=== PATIENT | female | born 1970 | race Caucasian/White ===

== ENCOUNTER 2024-12-31 16:59 | Emergency (ER) | payer OTHER, SELFPAY ==
[2024-12-31 17:13] VITALS: BP 127/98; PULSE 87; RESP 16; TEMP 36.3; O2SAT 98
--- NOTE | 2024-12-31 17:28 | ED_ITS ---
HPI - Female Genitourinary General Chief complaint: Urogenital-Female Stated complaint: FLANK PAIN Time Seen by Provider: 12/31/24 17:01 Source: patient Mode of arrival: ambulatory Limitations: no limitations History of Present Illness HPI Narrative: Patient presents to clinic with complaints of right CVA tenderness, nausea, and vomiting x 2 days. She has not been taking anything over the counter for her symptoms. She states that she had a UTI a month ago and was treated with Cipro. She felt like at that time that her symptoms went away after treatment. She does also state that she has also had kidney stones in the past. Denies any fever, chills, burning with urination, itching. Related Data Home Medications ?Medication ?Instructions ?Recorded ?Confirmed ?Last Taken ?Type tirzepatide (weight loss) 12/31/24 Unknown History Allergies Allergy/AdvReac Type Severity Reaction Status Date / Time No Known Allergies Allergy Verified 12/31/24 17:12 Review of Systems Review of Systems: CONSTITUTIONAL: Denies body aches, fever, chills, or sweats. CARDIOVASCULAR: Denies chest pain, palpitations, or edema. RESPIRATORY: Denies cough or dyspnea. GASTROINTESTINAL: Denies abdominal pain, nausea, vomiting, or diarrhea. GENITOURINARY: Denies dysuria, frequency, urgency, hematuria, discharge. Reports R flank pain. SKIN: Denies rash, itching, or wounds. MUSCULOSKELETAL: Denies back pain or myalgia. All systems reviewed & are unremarkable except as noted in HPI and below PMFSH Comments At time of signature, I have reviewed and agree with nursing past medical, surgical, social and family history unless otherwise noted. Please see nursing chart for further information. There is no relevant family history pertinent to the presenting complaint. Exam Narrative: GENERAL: Well-appearing and in no acute distress. ENT: Mucous membranes pink and moist. NECK: Normal AROM. ?Supple. ? CHEST: ?No respiratory distress. Clear to auscultation. HEART: Regular rate and rhythm. ABDOMEN: Soft, nontender, nondistended, normal active bowel sounds. No CVA tenderness. SKIN: Warm, dry, no rash. NEURO: No focal deficits. Alert and oriented x3. Gait steady. PSYCH: ?Normal affect. ? Course Course Level of Care: Express Care Visit Vital Signs Vital signs: Vital Signs Temperature 97.3 F L 12/31/24 17:13 Pulse Rate 87 12/31/24 17:13 Respiratory Rate 16 12/31/24 17:13 Blood Pressure 127/98 H 12/31/24 17:13 Pulse Oximetry 98 12/31/24 17:13 Temperature 97.3 F L 12/31/24 17:13 Pulse Rate 87 12/31/24 17:13 Respiratory Rate 16 12/31/24 17:13 Blood Pressure 127/98 H 12/31/24 17:13 Pulse Oximetry 98 12/31/24 17:13 Reviewed. MDM - Female Genitourinary MDM Narrative Medical decision making narrative: Discussed physical exam findings. Antibiotic for UTI. Shared decision making with patient regarding kidney stones. Patient has had kidney stones in the past and does not feel like she has one. She is adamant about only treating the UTI at this time. Discussed in length that if symptoms persist, she needs to go to ER. Pt is appropriate for outpatient treatment and follow up. Differential Diagnosis Differential diagnosis: Likely urinary tract infection and other (kidney stone) Critical Care Time Critical Care Time Critical Care Time: No Discharge Plan Discharge Clinical Impression: Urinary tract infection Patient Disposition: Home Condition: Stable Instructions: Antibiotic Form, Urinary Tract Infection in Women (ED) Additional Instructions: Your urine shows infection today. Take Bactrim as prescribed until gone. Your urine will be sent of for a culture to identify what type of bacteria is causing your infection. If the culture shows that your medication will not get rid of your infection, you will be notified and a new antibiotic will be called in for you. If the culture does not identify any bacteria, you may receive a phone call instructing you to stop the Bactrim. If there is no bacteria identified, you will need to follow up with your PCP for further evaluation and treatment if symptoms persist. Patient Language: Slovenian Prescriptions: New sulfamethoxazole-trimethoprim [Bactrim DS] 800-160 mg tablet 1 tablet PO Q12H 3 Days Qty: 6 0RF No Action tirzepatide (weight loss) Follow-up/Referrals: PHYSICIAN,.NET DEVELOPER [Primary Care Provider] - Time of Disposition: 17:30
[2025-01-01 11:57] LABS: EDUAAPPEAR Cloudy; EDUABILI Negative (Negative); EDUABLOOD Trace (Negative); EDUACOLOR1 Yellow; EDUAGLUCOSE Negative (Negative); EDUAKETONE Trace (Negative); EDUALEUKO 1+ (Negative); EDUANITRATE Negative (Negative); EDUAPROTEIN Negative (Negative); EDUAUROBILI 0.2
== END 2024-12-31 17:33 | disposition home or self-care (01) ==
DX: N39.0 Urinary tract infection, site not specified (principal); Z87.442 Personal history of urinary calculi
CPT/HCPCS: 81003; 87086; 99213; G0463

== ENCOUNTER 2025-01-01 11:14 | Emergency (ER) | payer OTHER, SELFPAY ==
--- NOTE | ~2025-01-01 | CT_ITS ---
EXAMINATION: CT abdomen pelvis wo con DATE: 01/01/2025 14:14 INDICATION: Right flank pain and kidney stones. TECHNIQUE: Computed tomography (CT) of the abdomen and pelvis was performed without intravenous contr ast. Automated exposure control and iterative reconstruction technique were employed. The dose-length product was 336.21 mGy-cm. COMPARISON: None FINDINGS: Lung bases are clear. Heart size is normal. No pericardial or pleural effusion. Cholecystectomy clips the gallbladder fossa. Liver, spleen, pancreas and bilateral adrenal glands are normal. Kidneys and ureters are normal with no urolithiasis, hydroureteronephrosis or perinephric/ureteral stranding. Florentin wels including the appendix are normal. Bladder, anteverted uterus and bilateral adnexa are unremarka ble. No free intraperitoneal gas or fluid. No pathologically enlarged abdominal or pelvic lymphadenop athy. Chronic appearing minimal to mild likely physiologic anterior wedging at T11-L1. Mild thoracic and lumbar spondylosis. IMPRESSION: 1. No urolithiasis or acute intra-abdominal/pelvic process. Reviewed, dictated and finalized at location A.
[2025-01-01 11:16] VITALS: BP 139/83; PULSE 90; RESP 16; TEMP 36.4; O2SAT 100
--- NOTE | 2025-01-01 12:53 | ED.ABDPAIN ---
HPI - Abdominal Pain General Chief Complaint: Urogenital-Female <Ysabel Cevallos PA-C - Last Filed: 01/01/25 16:20> Stated Complaint: flank pain <Ysabel Cevallos PA-C - Last Filed: 01/01/25 16:20> Time Seen by Provider: 01/01/25 12:53 <Ysabel Cevallos PA-C - Last Filed: 01/01/25 16:20> Focused HPI: This is a 54 year old female that presents to the ER for right flank pain. Ongoing since yesterday. She went to urgent care yesterday and reports she had blood in her urine. She was prescribed Bactrim. Presents today for continued pain. Denies fevers, vomiting. GENERAL: Well-appearing, well-nourished, and in no acute distress. HEAD: Normocephalic, atraumatic. CHEST: Clear to auscultation. ?No respiratory distress. HEART: Regular rate and rhythm.? NEURO: ?Alert and oriented x3. Patient screened in triage and initial orders placed.? ?Additional care and disposition to be based upon?diagnostic testing and treatment. <Ysabel Cevallos PA-C - Last Filed: 01/01/25 16:20> History of Present Illness HPI narrative: 54-year-old female presenting with flank pain. Started yesterday while she was at work. Feels similarly to prior kidney stones. She went to urgent care yesterday and they saw blood in her urine so they started her on Bactrim. She has been taking this as prescribed. Pain continued today so she wanted to get checked out. She did have some dysuria earlier. Reports subjective fevers. No nausea or vomiting. No abdominal pain. No further complaints. <Yana Gonzalez MD - Last Filed: 01/01/25 15:14> Related Data Home Medications: Home Medications ?Medication ?Instructions ?Recorded ?Confirmed ?Last Taken ?Type tirzepatide (weight loss) 12/31/24 Unknown History <Ysabel Cevallos PA-C - Last Filed: 01/01/25 16:20> Allergies/Adverse Reactions: Allergies Allergy/AdvReac Type Severity Reaction Status Date / Time No Known Allergies Allergy Verified 01/01/25 11:14 <Ysabel Cevallos PA-C - Last Filed: 01/01/25 16:20> Review of Systems Review of Systems: All systems reviewed & are unremarkable except as noted in HPI and below <Yana Gonzalez MD - Last Filed: 01/01/25 15:14> Exam Narrative: GENERAL: Well-appearing, in no acute distress, pleasant and cooperative HEAD: Normocephalic, atraumatic. EYES: PERRLA and EOMI. ENT: Mucous membranes moist. NECK: Supple. CHEST: Clear to auscultation. No respiratory distress. HEART: Regular rate and rhythm ABDOMEN: Soft, nontender, nondistended; no CVA tenderness EXTREMITIES: Normal range of motion SKIN: Warm, dry, no rash. NEURO: Alert and oriented x3. PSYCH: Normal mood and affect. <Yana Gonzalez MD - Last Filed: 01/01/25 15:14> Course Vital Signs Vital signs: Vital Signs Temperature 97.6 F 01/01/25 11:16 Pulse Rate 90 01/01/25 11:16 Respiratory Rate 16 01/01/25 11:16 Blood Pressure 139/83 01/01/25 11:16 Pulse Oximetry 100 01/01/25 11:16 Oxygen Delivery Room Air 01/01/25 11:16 Temperature 97.6 F 01/01/25 11:16 Pulse Rate 67 01/01/25 15:24 Respiratory Rate 20 01/01/25 15:24 Blood Pressure 128/84 01/01/25 15:24 Pulse Oximetry 98 01/01/25 15:24 Oxygen Delivery Room Air 01/01/25 11:16 <Ysabel Cevallos PA-C - Last Filed: 01/01/25 16:20> Vital Signs Temperature 97.6 F 01/01/25 11:16 Pulse Rate 90 01/01/25 11:16 Respiratory Rate 16 01/01/25 11:16 Blood Pressure 139/83 01/01/25 11:16 Pulse Oximetry 100 01/01/25 11:16 Oxygen Delivery Room Air 01/01/25 11:16 Temperature 97.6 F 01/01/25 11:16 Pulse Rate 67 01/01/25 15:24 Respiratory Rate 20 01/01/25 15:24 Blood Pressure 128/84 01/01/25 15:24 Pulse Oximetry 98 01/01/25 15:24 Oxygen Delivery Room Air 01/01/25 11:16 <Yana Gonzalez MD - Last Filed: 01/01/25 15:14> MDM - Abdominal Pain MDM Narrative Medical decision making narrative: 54-year-old female presenting with right flank pain. UA with 3+ leuk esterase, 51-100 wbc's, many squams. Blood work is unremarkable. CT abdomen pelvis with no acute abnormalities. Discussed the reassuring workup with the patient. She is safe for outpatient management, she will complete the Bactrim as prescribed and follow-up with her PCP. Appropriate return precautions given. Discharged in stable condition. <Yana Gonzalez MD - Last Filed: 01/01/25 15:14> Differential Diagnosis Differential diagnosis: Likely abdominal pain, acute appendicitis, calculus of kidney, constipation and diverticulitis <Yana Gonzalez MD - Last Filed: 01/01/25 15:14> Medical Records Attestation: I reviewed the patient's medical records. <Yana Gonzalez MD - Last Filed: 01/01/25 15:14> Lab Data Attestation: I reviewed the patient's lab results. <Yana Gonzalez MD - Last Filed: 01/01/25 15:14> Result diagrams: 01/01/25 13:00 01/01/25 13:00 <Ysabel Cevallos PA-C - Last Filed: 01/01/25 16:20> Labs: Lab Results 01/01/25 01/01/25 Range/Units 13:00 13:17 WBC 9.2 (4.5-10.0) K/mm3 RBC 5.33 (4.2-5.4) M/mm3 Hgb 14.6 (12.0-15.0) g/dL Hct 44.2 (37.0-47.0) % MCV 82.9 (80-100) fl MCH 27.4 (26-34) pg MCHC 33.0 (32-36) g/dl RDW 13.5 (11.5-14.5) % Plt Count 239 (150-375) k/mm3 MPV 11.0 H (7.4-10.4) fl Immature Gran % (Auto) 0.3 (0-0.5) % Neut % (Auto) 68.1 (45.5-73.1) % Lymph % (Auto) 16.4 L (18.3-44.2) % [place] % (Auto) 14.0 H (2.6-8.5) % Eos % (Auto) 0.8 (0-4.4) % Baso % (Auto) 0.4 (0.2-1.2) % Lymph # (Auto) 1.51 (0.9-3.2) K/mm3 [place] # (Auto) 1.3 H (0.1-0.6) K/mm3 Eos # (Auto) 0.1 (0-0.3) K/mm3 Baso # (Auto) 0.0 (0.0-0.1) K/mm3 Abs Immat Gran (auto) 0.03 (0.00-0.031) K/mm3 Absolute Neuts (auto) 6.3 (1.3-6.7) K/mm3 Absolute Nucleated RBC 0.000 (0.0-0.012) K/mm3 Nucleated RBC % 0.0 (0.0-0.2) % Sodium 135 L (137-145) mmol/L Potassium 4.0 (3.4-5.0) mmol/L Chloride 100 (98-107) mmol/L Carbon Dioxide 29 (22-30) mmol/L Anion Gap 6 (4-12) mmol/L BUN 6 L (7-17) mg/dL Creatinine 0.78 (0.7-1.0) mg/dL Estim Creat Clear Calc 88 ml/min Estimated GFR > 60 (59 - ) Glucose 92 (65-110) mg/dL Calcium 9.1 (8.4-10.2) mg/dL Total Bilirubin 1.3 (0.2-1.3) mg/dL AST 28 (14-36) U/L ALT 37 H (6-35) U/L Alkaline Phosphatase 89 (38-126) U/L Total Protein 7.0 (6.3-8.2) g/dL Albumin 4.0 (3.5-5.1) g/dL Lipase 122 (23-300) U/L Urine Color Yellow (Yellow) Urine Appearance Cloudy H (Clear) Urine pH 6.0 (5.0-9.0) Ur Specific [place] 1.013 (1.001-1.035) Urine Protein Negative (Negative) mg/dL Urine Glucose (UA) Negative (Negative) mg/dL Urine Ketones Negative (Negative) mg/dL Ur Blood (Man) Trace (Negative) Urine Nitrate Negative (Negative) Urine Bilirubin Negative (Negative) Urine Urobilinogen 0.2 (<2.0) mg/dL Leukocyte Esterase Rfl 3+ H (Negative) IBRAHIMA/UL Urine RBC 3-5 H (0-2) /hpf Urine WBC 51-100 H (0-3) /hpf Ur Squamous Epith Cells Many H (Few) /hpf Urine Bacteria 1+ H /hpf Urine Casts 0-2 POC Urine HCG, Qual Negative (Negative) <Ysabel Cevallos PA-C - Last Filed: 01/01/25 16:20> Lab Results 01/01/25 01/01/25 Range/Units 13:00 13:17 WBC 9.2 (4.5-10.0) K/mm3 RBC 5.33 (4.2-5.4) M/mm3 Hgb 14.6 (12.0-15.0) g/dL Hct 44.2 (37.0-47.0) % MCV 82.9 (80-100) fl MCH 27.4 (26-34) pg MCHC 33.0 (32-36) g/dl RDW 13.5 (11.5-14.5) % Plt Count 239 (150-375) k/mm3 MPV 11.0 H (7.4-10.4) fl Immature Gran % (Auto) 0.3 (0-0.5) % Neut % (Auto) 68.1 (45.5-73.1) % Lymph % (Auto) 16.4 L (18.3-44.2) % [place] % (Auto) 14.0 H (2.6-8.5) % Eos % (Auto) 0.8 (0-4.4) % Baso % (Auto) 0.4 (0.2-1.2) % Lymph # (Auto) 1.51 (0.9-3.2) K/mm3 [place] # (Auto) 1.3 H (0.1-0.6) K/mm3 Eos # (Auto) 0.1 (0-0.3) K/mm3 Baso # (Auto) 0.0 (0.0-0.1) K/mm3 Abs Immat Gran (auto) 0.03 (0.00-0.031) K/mm3 Absolute Neuts (auto) 6.3 (1.3-6.7) K/mm3 Absolute Nucleated RBC 0.000 (0.0-0.012) K/mm3 Nucleated RBC % 0.0 (0.0-0.2) % Sodium 135 L (137-145) mmol/L Potassium 4.0 (3.4-5.0) mmol/L Chloride 100 (98-107) mmol/L Carbon Dioxide 29 (22-30) mmol/L Anion Gap 6 (4-12) mmol/L BUN 6 L (7-17) mg/dL Creatinine 0.78 (0.7-1.0) mg/dL Estim Creat Clear Calc 88 ml/min Estimated GFR > 60 (59 - ) Glucose 92 (65-110) mg/dL Calcium 9.1 (8.4-10.2) mg/dL Total Bilirubin 1.3 (0.2-1.3) mg/dL AST 28 (14-36) U/L ALT 37 H (6-35) U/L Alkaline Phosphatase 89 (38-126) U/L Total Protein 7.0 (6.3-8.2) g/dL Albumin 4.0 (3.5-5.1) g/dL Lipase 122 (23-300) U/L Urine Color Yellow (Yellow) Urine Appearance Cloudy H (Clear) Urine pH 6.0 (5.0-9.0) Ur Specific [place] 1.013 (1.001-1.035) Urine Protein Negative (Negative) mg/dL Urine Glucose (UA) Negative (Negative) mg/dL Urine Ketones Negative (Negative) mg/dL Ur Blood (Man) Trace (Negative) Urine Nitrate Negative (Negative) Urine Bilirubin Negative (Negative) Urine Urobilinogen 0.2 (<2.0) mg/dL Leukocyte Esterase Rfl 3+ H (Negative) IBRAHIMA/UL Urine RBC 3-5 H (0-2) /hpf Urine WBC 51-100 H (0-3) /hpf Ur Squamous Epith Cells Many H (Few) /hpf Urine Bacteria 1+ H /hpf Urine Casts 0-2 POC Urine HCG, Qual Negative (Negative) <Yana Gonzalez MD - Last Filed: 01/01/25 15:14> Imaging Data Radiologist's impression: ITS Impressions Abdomen/Pelvis CT 01/01/25 14:15 IMPRESSION: 1. No urolithiasis or acute intra-abdominal/pelvic process. <Ysabel Cevallos PA-C - Last Filed: 01/01/25 16:20> ITS Impressions Abdomen/Pelvis CT 01/01/25 14:15 IMPRESSION: 1. No urolithiasis or acute intra-abdominal/pelvic process. <Yana Gonzalez MD - Last Filed: 01/01/25 15:14> Critical Care Time Critical Care Time Critical Care Time: No <Yana Gonzalez MD - Last Filed: 01/01/25 15:14> Discharge Plan Discharge Clinical Impression: Urinary tract infection Qualifiers: Urinary tract infection type: acute cystitis Hematuria presence: with hematuria Qualified Code(s): N30.01 - Acute cystitis with hematuria <Ysabel Cevallos PA-C - Last Filed: 01/01/25 16:20> Patient Disposition: Home <Ysabel Cevallos PA-C - Last Filed: 01/01/25 16:20> Condition: Stable <Ysabel Cevallos PA-C - Last Filed: 01/01/25 16:20> Instructions: Antibiotic Form, Urinary Tract Infection in Women (ED) <Ysabel Cevallos PA-C - Last Filed: 01/01/25 16:20> Additional Instructions: The CT scan today shows no kidney stones. Please complete the antibiotics as prescribed for your bladder infection. Follow-up closely with your PCP. If your symptoms worsen or other concerning symptoms arise, please return to the ER. <Ysabel Cevallos PA-C - Last Filed: 01/01/25 16:20> Patient Language: Japanese <Ysabel Cevallos PA-C - Last Filed: 01/01/25 16:20> Prescriptions: No Action tirzepatide (weight loss) sulfamethoxazole-trimethoprim [Bactrim DS] 800-160 mg tablet 1 tablet PO Q12H 3 Days Qty: 6 0RF <Ysabel Cevallos PA-C - Last Filed: 01/01/25 16:20> Follow-up/Referrals: PHYSICIAN,BATTER DEPOSITOR [Primary Care Provider] - <Ysabel Cevallos PA-C - Last Filed: 01/01/25 16:20>
[2025-01-01 13:13] LABS: Basophils Percent Auto 0.4 % (0.2-1.2); Eosinophils Absolute Auto 0.1 K/mm3 (0-0.3); Eosinophils Percent Auto 0.8 % (0-4.4); Hematocrit 44.2 % (37.0-47.0); Hemoglobin 14.6 g/dL (12.0-15.0); Immature Granulocyte Absolute 0.03 K/mm3 (0.00-0.031); Immature Granulocyte Percent A 0.3 % (0-0.5); Lymphocytes Absolute Auto 1.51 K/mm3 (0.9-3.2); Lymphocytes Percent Auto 16.4 % (18.3-44.2); Mean Corpuscular Hemoglobin 27.4 pg (26-34); Mean Corpuscular Volume 82.9 fl (80-100); Monocytes Absolute Auto 1.3 K/mm3 (0.1-0.6); Neutrophils Absolute Auto 6.3 K/mm3 (1.3-6.7); Neutrophils Percent Auto 68.1 % (45.5-73.1); Platelet Count Result 239 k/mm3 (150-375); Red Blood Count 5.33 M/mm3 (4.2-5.4); Red Cell Distribution Width 13.5 % (11.5-14.5); White Blood Count 9.2 K/mm3 (4.5-10.0)
[2025-01-01 13:18] LABS: Add Urine Microscopic? YES; Appearance Urine Cloudy (Clear); Bacteria Urine 1+ /hpf; Bilirubin Urine Negative (Negative); Blood Urine Trace (Negative); Color Urine Yellow (Yellow); Glucose Urine UA Negative (Negative); Ketones Urine Negative (Negative); Leukocyte Esterase Ur 3+ LEU/UL (Negative); Nitrate Urine Negative (Negative); Non Pathogenic Casts 0-2; Protein Urine Negative (Negative); Specific Grav Ur 1.013 (1.001-1.035); Squamous Epithelial Cell Urine Many /hpf (Few); Urobilinogen Urine 0.2 mg/dL (<2.0); WBC Urine 51-100 /hpf (0-3)
[2025-01-01 13:18] LABS: BEDSIDEPREGUCG Negative (Negative)
[2025-01-01 13:26] LABS: Alanine Aminotransferase 37 U/L (6-35); Alkaline Phosphatase 89 U/L (38-126); Anion Gap 6 mmol/L (4-12); Aspartate Amino Transferase 28 U/L (14-36); Bilirubin,Total 1.3 mg/dL (0.2-1.3); Blood Urea Nitrogen 6 mg/dL (7-17); Calcium 9.1 mg/dL (8.4-10.2); Carbon Dioxide 29 mmol/L (22-30); Chloride 100 mmol/L (98-107); Estimated CRCL calculation 88 ml/min; Estimated Glomerular Filt Rate > 60; Glucose 92 mg/dL (65-110); Lipase 122 U/L (23-300); Sodium 135 mmol/L (137-145)
[2025-01-01 15:24] VITALS: BP 128/84; PULSE 67; RESP 20; O2SAT 98
== END 2025-01-01 15:25 | disposition home or self-care (01) ==
PROVIDERS: Physician Assistant; Emergency Provider Emergency Medicine
DX: N30.01 Acute cystitis with hematuria (principal)
CPT/HCPCS: 36415; 74176; 80053; 81001; 81025; 83690; 85025; 99284

== ENCOUNTER 2025-02-21 14:11 | Outpatient (CLI) | payer OTHER, SELFPAY ==
--- NOTE | ~2025-02-21 | MM_ITS ---
EXAMINATION: MM screening emerita BI w lesly HISTORY: Screening mammogram, family history of breast cancer in her mother. TECHNIQUE: Craniocaudal and mediolateral oblique 3-D tomosynthesis images were obtained and synthetic 2-D images were generated. CAD analysis was submitted and interpreted. COMPARISON: No prior mammogram is available for comparison at this institution. BREAST PARENCHYMAL COMPOSITION:Not Dense. The breasts are almost entirely fatty FINDINGS: No suspicious mass, calcification, or architectural distortion are identified in either cachorro ast to suggest malignancy. There has been no suspicious interval change. IMPRESSION: No mammographic evidence of malignancy. Recommend routine screening mammography in one year. BI-RADS Category 1: Negative Reviewed, dictated and finalized at location .
== END 2025-02-21 14:12 | disposition home or self-care (01) ==
LOC: ANHIMG 14:13
PROVIDERS: PCP Internal Medicine; Visit Provider Internal Medicine
DX: Z12.31 Encounter for screening mammogram for malignant neoplasm of breast (principal)
CPT/HCPCS: 77063; 77067

== ENCOUNTER 2025-06-12 01:01 | Day surgery (SDC) | payer OTHER, SELFPAY ==
[2025-06-01 10:03] VITALS: BMI 29.1
--- OUTSIDE RECORDS SUMMARY | 2025-06-12 01:04 | XMS_ITS | Data Portability ---
Author Organization [facility] Lela [facility] Address [address] [place] [address] Care Team Providers Care Director Peoplesoft Name Role Phone GERARDO TERESA Primary Care Provider MATT Lynne Stope Miner Assessment Encounter Date Assessment Date Assessment LastModified by Organization Details LastModified Time 01/29/2025 01/29/2025 Losartan 25 mg daily see me back in 6 weeks low-fat diet gynecology appointment mammogram colonoscopy CBC CMP lipid healthy lifestyle care instructions [email or web address] Not available 03/06/2025 22:42:44 04/16/2025 04/16/2025 Continue current therapy follow up 6 months Not available 04/16/2025 20:38:02 Plan of Treatment Reminders Order Date Submit Date Provider Last Modified By Organization Details Last Modified Time Details Appointments ANY 15 2025 10:00A M Gerardo Teresa MD Not available Not available Not available Lab CMP, serum or plasma 2024 025 [facility], [address], [place], [address], 02/05/2025 11:03:14 CBC w/ auto diff 2024 025 [facility], [address], [place], [address], 02/05/2025 11:03:14 lipid panel, serum 2024 025 [facility], [address], [place], [address], 01/30/2025 10:01:25 Referral gynecolog ist referral 2024 025 BROOKLYNN Garrido MD, [address] [facility] [address], [place], [address], 05/01/2025 19:38:50 Procedures colonosco py screening (PROC) 2024 025 [facility], [address], [address], [place], [address], 05/18/2025 14:24:03 Surgeries None recorded. Imaging MAMMO, screening , digital, bilateral 2024 025 [facility] (Imaging), [address], [place], [address], 02/22/2025 06:57:54 Medication Orders losartan 25 mg tablet 2024 025 [facility] #[id number], [address], [place], [address], 01/29/2025 12:33:06 Patient TargetsNo targets recorded. Patient Instructions Encounter Date Encounter Id Patient Instructions Last Modified By Organization Details Last Modified Time 01/29/2025 [id number] A healthy lifestyle: care instructions [email or web address] Not available 01/29/2025 12:33:06 04/16/2025 [id number] A healthy lifestyle: care instructions [email or web address] Not available 04/16/2025 15:55:01 Reason for Referral Vocational [employer] Referral for Gy necologic examination Referring Physician: Gerardo Teresa, Internal Medicine, Encounter Date: 01/29/2025 Results Created Date Observation Date Name Description Value Unit Range Abnormal Flag Note LastModifiedBy Organization Detail LastModifiedTime 02/23/2002/21/2025 MAMMO , scree kailee, digit al, bilat eral No observ ation record ed. [facility] [address], [place], [address], 03/07/2025 11:04:06 02/23/20 25 02/21/2025 MAMMO , ojruss kailee, digit al, bilat eral No observ ation record ed. [facility] [address], [place], [address], 03/07/2025 11:04:07 Result Notes None recorded. Problems Name Problem SNOMED Code Status Onset Date Resolution Date Notes Provider Name and Address Organization Details Recorded Time Screening for malignant neoplasm of colon Active 2024 LAISHA Ramirez, [place] - [facility] 11:40:53 Screening mammography Active 2024 LA[place], [place] [facility] 11:40:55 Gynecologic examination Active 2024 LA[place]HA aRmirez, [place] - [facility] 11:40:56 Kidney stone 47263075 Active 2024 Haylee Ramos MA null, [place] - [facility] 5 11:40:58 Essential hypertension 25704270 Active 2024 LAISHA [place] [facility] 11:41:00 Overweight 942170685 Active 2024 LA[place] [facility] 11:41:01 Overweight in adulthood with body mass index of 25 or more but less than 30 437232421 Active 2024 LAISHA [place] [facility] 11:41:03 Problem Notes None recorded. Procedures Surgical History Date Name Laterality Status Provider Name and Address Organization Details Recorded Time 01/30/20 cholecystectomy completed Cecilia Keane [place] - [facility] 01/29/2025 11:11:25 Imaging Results None recorded. Procedure Notes None recorded. Medical Equipment None Reported. Allergies No known drug allergies Medications Name Sig Start Date Stop Date Status Note LastModified by Organization Details LastModified Time amoxicillin 500 mg capsule TAKE 1 CAPSULE BY MOUTH TWICE A DAY FOR 10 DAYS 01/29 completed Not Available Not Available Not Available cetirizine 10 mg tablet TAKE 1 TABLET BY MOUTH EVERY DAY active Not Available Not Available No t Available ibuprofen 800 mg tablet TAKE 1 TABLET BY MOUTH EVERY 8 HOURS WITH FOOD NEEDED FOR PAIN *START 10/25 completed Not Available Not Available Not Available ciprofloxac in 500 mg tablet TAKE 1 TABLET BY MOUTH EVERY 12 HOURS FOR 7 DAYS 01/29 completed Not Available Not Available Not Available sulfamethox azole 800 mg-trimetho prim 160 mg tablet TAKE 1 TABLET BY MOUTH EVERY 12 HOURS FOR 3 DAYS 01/29 completed Not Available Not Available Not Available losartan 25 mg tablet TAKE 1 TABLET BY MOUTH EVERY DAY 2024 active Not Available Not Available Not Avai lable methylpredn isolone 4 mg tablets in a dose pack PLEASE SEE ATTACHED FOR DETAILED DIRECTION S 01/29 completed Not Available Not Available Not Available nitrofurant oin monohydrate /macrocryst als 100 mg capsule TAKE 1 CAPSULE BY MOUTH TWICE A DAY 01/29 completed Not Available Not Available Not Available tirzepatide (weight loss) 2.5 mg/0.5 mL subcutaneou s solution Inject 0.5 mL every week by subcutane ous route for 28 days. active Not Available Not Available No t Available Vitals Date Recorded Body height Body mass index (BMI) Body weight Heart rate Oxygen saturation Oxygen saturation in Arterial blood by Pulse oximetry Systolic And Diastolic Provider Name and Address Organization Details Last Updated DateTime 5 175.26 cm 29.7 kg/m2 81689.3 5 g 68 /min 99 % 99 % 140/98 mm[Hg] Cecilia Keane [facility] 5 11:06:59 Date Recorded Body height Body mass index (BMI) Body weight Heart rate Oxygen saturation Oxygen saturation in Arterial blood by Pulse oximetry Systolic And Diastolic Provider Name and Address Organization Details Last Updated DateTime 5 175.26 cm 29.8 kg/m2 14836.6 6 g 87 /min 96 % 96 % 102/72 mm[Hg] Cecilia Keane [facility] 5 15:35:17 Social History Question Answer Notes LastModified by Organizat ion Details LastModified Time Tobacco Smoking Status Former Smoker Cecilia Keane MA null, [facility] 01/29/2025 11:10:22 Are You Blind Or Do You Have Difficulty Seeing? No Information not available 01/29/2025 What Is Your Level Of Caffeine Consumption? Occasional Information not available 01/29/2025 In The 14 Days Before Symptom Onset, Have You Had Close Contact With A Laboratory-confir med COVID-19 While That Case Was Ill? No Information not available 01/29/2025 In The 14 Days Before Symptom Onset, Have You Had Close Contact With A Person Who Is Under Investigation For COVID-19 While That Person Was Ill? No Information not available 01/29/2025 Have You Been To An Area Known To Be High Risk For COVID-19? No Information not available 01/29/2025 Are You Deaf Or Do You Have Serious Difficulty Hearing? No Information not available 01/29/2025 Are There Any Guns Present In Your Home? No Information not available 01/29/2025 What Was The Date Of Your Most Recent Tobacco Screening? 04/16/2025 Information not available 04/16/2025 Do You Use Your Seat Belt Or Car Seat Routinely? Yes Information not available 01/29/2025 Do You Have Smoke And Carbon Monoxide Detectors In Your Home? Yes Information not available 01/29/2025 How Much Tobacco Do You Smoke? No Information not available 01/29/2025 Do You Use Sunscreen Routinely? Yes Information not available 01/29/2025 Has Tobacco Cessation Counseling Been Provided? No Information not available 01/29/2025 Sex: Female Functional Status Question Answer Note LastModified by Organizat ion Details LastModified Time Do you use any illicit or recreational drugs? No Information not available 01/29/2025 Do you or have you ever used any other forms of tobacco or nicotine? No Information not available 01/29/2025 What is your level of alcohol consumption? Occasional Information not available 01/29/2025 Are you able to care for yourself independently? Yes Information not available 01/29/2025 Mental Status None recorded. Family History Relationship Description Onset Age of this Age Resolved Age Notes LastModified by Organization Details LastModified Time Mother Family history of breast cancer gwardma Not available 2024 13:23:06 Mother Heart disease gwardma Not available 2024 13:23:14 Mother Hypertensive disorder gwardma Not available 2024 13:23:23 Medical History No medical history recorded. Gynecological HistoryNo gynecological history recorded. Obstetrics History GPAL:G 0 P 0 0 0 0 Immunizations Vaccine Type Date Status Note Provider Nam e and Address Organization Details Recorded Time COVID-19, mRNA, LNP-S, PF, 30 mcg/0.3 mL dose 12/03/2020 completed Not Available [facility] 15:02:11 COVID-19, mRNA, LNP-S, PF, 30 mcg/0.3 mL dose 12/24/2020 completed Not Available [facility] 15:02:11 Past Encounters Encounter ID Performer Location Encounter Start Date Encounter Closed Date Diagnosis/Indication Diagnosis SNOMED-CT Code Diagnosis ICD10 Code Diagnosis IMO Codes Diagnosis Note [id number] Gerardo Teresa MD [facility] [place] [address] [place] [address] 01/29/2025 10:48:26 01/29/2025 11:43:38 Overweight in adulthood with body mass index of 25 or more but less than 30 514405078 Z68.29 167609 Overweight 239054439 E66 .3 Essential hypertension 73987619 I10 119300 Kidney stone 72723117 N2 0.0 09166 Gynecologi c examination 54821669 Z01.843 5903915 Screening mammography 24 577119 Z12.31 86768754 Screening for malignant neoplasm of colon 344240044 Z12.11 641917 [id number] Gerardo Teresa MD [facility] [place] [address] [place] [address] 04/16/2025 15:00:07 04/16/2025 16:18:23 Overweight in adulthood with body mass index of 25 or more but less than 30 679914162 Z68.29 187438 Overweight 229310255 E66 .3 Essential hypertension 87751832 I10 846602 Health Concerns Section Related Observation LastModified by Organization Detai ls LastModified Time None Recorded Concern Status LastModified by Organization Details LastModified Time None Recorded Advance Directives Directive None Recorded Payers Insurance Date Sequence Insurance Name Policy Number Policy Jones Covered Member ID Jones Member ID Guarantor Name 04/13/2025 1 KAILA [id number] Allyson Farias [id number] Fidejerrod Coker Jarrett Notes Date Note Type Note Provider Name and Address Organization Details Recorded Time 01/29/2025 text/html 54-year-old taking tirzepatide compound [facility] prescribed medicines otherwise negative allergies none surgeries gallbladder family history mother history of AFib and hypertension that is some alcohol abuse denies smoking works at [employer] occasional alcohol Gerardo Teresa MD Attn: [address] [place], [address], [facility] 03/06/2025 22:43:19 04/16/2025 text/html Short interval follow up on blood pressure tolerating the losartan no side effects Gerardo Teresa MD Attn: [address] [place], [address], [facility] 04/16/2025 20:38:39 OBGyn Episode No OBEpisode recorded.
[2025-06-12 07:21] VITALS: BP 133/88; PULSE 65; RESP 18; TEMP 36.1; O2SAT 100; BMI 29.8
[2025-06-12 07:24] LABS: BEDSIDEPREGUCG Negative (Negative)
[2025-06-12] MEDS: LACTATED RINGERS 1,000 ML 150 ML IV CONT (07:33)
--- NOTE | 2025-06-12 07:41 | WPDANESEPPF ---
Anes - Initial Pre Proc Eval Procedure: Operation Date: 06/12/25 08:30 Proposed Procedures p Screening Colonoscopy - Marquis Valiente DO Date/Time: 06/12/25 07:41 Surgeon: Marquis Valiente DO Pre Op Diagnosis: Neoplasm screening Patient Data Age: 54 Gender: F Height: 1.75 m Weight: 91.7 kg Last Vital Signs Temp 36.1 C L 06/12/25 07:21 Pulse 65 06/12/25 07:21 Resp 18 06/12/25 07:21 BP 133/88 06/12/25 07:21 Pulse Ox 100 06/12/25 07:21 O2 Del Method Room Air 06/12/25 07:21 Allergies Allergy/AdvReac Type Severity Reaction Status Date / Time No Known Allergies Allergy Verified 06/12/25 07:15 Home Medications ?Medication ?Instructions ?Recorded ?Confirmed ?Type losartan 25 mg tablet 25 mg PO DAILY 03/14/25 06/12/25 History Laboratory Tests 06/12/25 07:17 POC Urine HCG, Qual Negative (Negative) Patient hx anesthesia problems: none Family hx anesthesia problems: none Results Review: All pre-operative results and documents have been reviewed as part of the pre-operative evaluation. [facility] Past Medical History Medical History (Updated 03/06/25 @ 13:20 by Lakisha Vann CMA) Hypertension Surgical History Surgical History (Updated 03/06/25 @ 13:19 by Laiksha Vann CMA) History of cholecystectomy H/O tubal ligation Family History Family History (Updated 03/06/25 @ 13:19 by Lakisha Vann CMA) Mother Breast cancer Heart disease Hypertension Grandparent Hypertension Heart disease Social History Social History (Updated 03/14/25 @ 09:37 by Lakisha Vann CMA) Smoking status: Former smoker Alcohol intake: never Substance use: never Substance use type: does not use Do You Feel Safe in your Home?: Yes Lack of Transportation: No Lack of Food: Never True Current Housing: I Have Housing Concerned About Future Housing: No Difficulty Paying Gas/Electric Bills: No Difficulty Paying for Meds: No Currently Unemployed: No Education: Trade/Vocational Certificate Difficulty w/ Childcare or Family Care: No Living arrangements: with family Occupation/Education: occupation Gender identity (if verbalized by the patient): Female Sexual Orientation (if Verbalized by the Patient): Straight or Heterosexual Anes - Eval Final PreProcedure Day of Procedure 06/12/25 07:41 Patient weight: overweight Heart: regular rate and rhythm Lungs: clear to auscultation Airway: Mallampati scale class II Neurological: alert and oriented Last oral intake: >/= 8 hours ASA classification: II Emergent: no Anesthetic plan: proceed Anesthesia type and monitoring: general GIVS and standard monitoring Results Review: All pre-operative results and documents have been reviewed as part of the pre-operative evaluation. Informed Consent: The patient's anesthetic plan and its attendant risks and benefits were discussed with the patient/family/POA. Questions were solicited and answers provided to the satisfaction of the patient/family/POA.
--- NOTE | 2025-06-12 07:56 | PM.IMHP ---
H&P: HPI History of Present Illness Date/Time: 06/12/25 07:56 Chief Complaint: Screening for colorectal cancer Narrative: This is a 54-year-old woman who presents for her 1st colonoscopy. She denies any hematochezia or melena. She denies family history of colon cancer. Review of Systems Review of Systems: All systems reviewed & are unremarkable except as noted in HPI and below Constitutional: Constitutional: Denies chills, Denies fever(s), Denies headache(s) and Denies weight loss Eyes: Eyes: Denies change in vision ENT: Denies dizziness, Denies headache(s), Denies neck mass and Denies throat swelling Cardiovascular: Cardiovascular: Denies chest pain, Denies lightheadedness and Denies dyspnea Respiratory: Respiratory: Denies cough, Denies dyspnea and Denies wheezing Gastrointestinal: Gastrointestinal: Denies abdominal pain, Denies change in bowel habits, Denies nausea and Denies vomiting Genitourinary: Genitourinary: Denies hematuria and Denies dysuria Musculoskeletal: Musculoskeletal: Reports as per HPI Integumentary/Breasts: Skin/Breast: Reports as per HPI Neurologic: Denies dizziness and Denies headache(s) Allergic/Immunologic: Allergic/Immunologic: Denies throat swelling and Denies wheezing PMF Past Medical History Medical History (Updated 06/12/25 @ 07:57 by Marquis Valiente DO) Hypertension Surgical History Surgical History (Updated 03/06/25 @ 13:19 by Lakisha Vann CMA) History of cholecystectomy H/O tubal ligation Family History Family History (Updated 03/06/25 @ 13:19 by Lakisha Vann CMA) Mother Breast cancer Heart disease Hypertension Grandparent Hypertension Heart disease Social History Social History (Updated 03/14/25 @ 09:37 by Lakisha Vann CMA) Smoking status: Former smoker Alcohol intake: never Substance use: never Substance use type: does not use Do You Feel Safe in your Home?: Yes Lack of Transportation: No Lack of Food: Never True Current Housing: I Have Housing Concerned About Future Housing: No Difficulty Paying Gas/Electric Bills: No Difficulty Paying for Meds: No Currently Unemployed: No Education: Trade/Vocational Certificate Difficulty w/ Childcare or Family Care: No Living arrangements: with family Occupation/Education: occupation Gender identity (if verbalized by the patient): Female Sexual Orientation (if Verbalized by the Patient): Straight or Heterosexual Meds Home Medications and Allergies Home Medications ?Medication ?Instructions ?Recorded ?Confirmed ?Type losartan 25 mg tablet 25 mg PO DAILY 03/14/25 06/12/25 History Allergies Allergy/AdvReac Type Severity Reaction Status Date / Time No Known Allergies Allergy Verified 06/12/25 07:15 Vital Signs Vital Signs - 24 hr 06/12/25 07:21 Temperature 97 F L Pulse Rate 65 Respiratory Rate 18 Blood Pressure 133/88 Pulse Oximetry 100 Oxygen Delivery Room Air Exam Const: General: no acute distress and alert Orientation/consciousness: patient oriented x3 HENMT: Head: normocephalic and atraumatic Ears: hearing grossly normal bilaterally Face/Nose/Sinus: Normal nares present Mouth: Yes Normal oral and palatal mucosa present Eyes: Periorbital: periorbital findings normal Sclera: sclerae normal EOM: EOMs intact bilaterally Neck: Neck: normal visual inspection, no lymphadenopathy and trachea midline Chest: Chest palpation & inspection: normal inspection of the chest Resp: Effort & Inspection: normal respiratory effort Auscultation: clear to auscultation bilaterally Cardio: Jugular venous distension: no JVD Rate: regular rate Rhythm: regular rhythm Heart sounds: S1 normal heart sound present and S2 normal heart sound present Peripheral pulses: Peripheral pulses 2+ throughout GI: Inspection: normal to inspection GI Palp: Yes Soft to palpation, No Tenderness to palpation present (GI), No Guarding due to palpation present (GI) and No Rebound tenderness present Percussion: Yes normal to percussion Auscultation: normal bowel sounds : General: Yes no CVA tenderness Back/Spine/Pelvis: Back: no CVA tenderness Neuro: General: patient oriented x3, no focal motor deficits and CN's II-XI intact bilaterally Cognition (Neuro): normal cognition Speech: normal speech Motor exam (neuro): 5/5 motor strength present throughout Extrem: General: capillary refill normal and no clubbing, cyanosis or edema Assessment and Plan Assessment and plan (1) Screening for colorectal cancer: Code(s): Z12.11 - Encounter for screening for malignant neoplasm of colon; Z12.12 - Encounter for screening for malignant neoplasm of rectum Status: Acute Assessment and Plan: I have recommended colonoscopy. I have discussed the procedure, risks, benefits, and alternatives. Questions were answered. Patient is agreeable to proceed.
--- NOTE | 2025-06-12 08:47 | S_PTH ---
PATIENT: Fide Farias LOC: [facility] U#:[id number] AGE/SX: 54/F ROOM: RE06/12/[address]: Marquis Valiente DO : 1970 BED: DIS: 06/12/2025 SPEC #: [id number] RECD: 06/12/25 09:36 STATUS: EILEEN REJanneth #: [id number] COLT: 06/12/25 08:[address]: Marquis Valiente DEPT: [facility] Surgical RECD BY: Nury Uribe ENTERED: 06/12/25 09:37 SP TYPE: Surgical OTHR DR: Gerardo Teresa, Tissues: A - Colon Polypectomy Procedures: Hematoxylin and Eosin Stain Gross and Microscopic Level 4
[2025-06-12 08:52] VITALS: BP 116/70; PULSE 78; RESP 19; O2SAT 97
[2025-06-12 09:02] VITALS: BP 124/78; PULSE 72; RESP 14; O2SAT 97
[2025-06-12 09:12] VITALS: BP 130/86; PULSE 63; RESP 18; O2SAT 100
== END 2025-06-12 09:22 | disposition home or self-care (01) ==
PROVIDERS: Anesthesiology; PCP Internal Medicine; Visit Provider Surgery
PROC: 0DJD8ZZ Inspection of Lower Intestinal Tract, Via Natural or Artificial Opening Endoscopic (ICD-10-PCS; CPT 45378; principal; 2025-06-12 08:30)
DX: Z12.11 Encounter for screening for malignant neoplasm of colon (principal); D12.3 Benign neoplasm of transverse colon
CPT/HCPCS: 45385; 88305; J2704; J7120